=== PATIENT | male | born 1980 ===

== ENCOUNTER 2020-08-06 10:47 | Emergency (ER) | payer OTHER, SELFPAY ==
[2020-08-06 11:00] VITALS: BP 121/69; PULSE 60; RESP 16; TEMP 36.9; O2SAT 100
--- NOTE | 2020-08-06 11:10 | PC.NURSE ---
VISUAL ACUITY OF BOTH EYE TOGETHER IS 20/20 -1
--- NOTE | 2020-08-06 11:30 | ED.GENADULT ---
HPI - General Adult General Chief complaint: Eye Problems Stated complaint: right eye fb Time Seen by Provider: 08/06/20 11:30 Source: patient and RN notes reviewed Mode of arrival: ambulatory Limitations: no limitations History of Present Illness HPI narrative: 39-year-old male presents with complains of redness and sensation of foreign body in right eye for the past 24 hours. Jayy reports putting on hard hat approximately 11:00am on 08/05/2020 and believes dust or particles went into RT eye. Flushed RT eye numerous times without relief. Mild redness, with clear tearing. Exacerbating factors consists of closing eyes, rubbing eye, and light exposure. Relieving factors is closing eyes. Denies blurred vision, double vision, or pain of eye with movement. Does not wear glasses or contact lenses. Remains active. The patient reports he have not been diagnosed with COVID-19. The patient reports he is not waiting for the results of a COVID-19 lab test. The patient reports he do not have chills, weakness, or fatigue. The patient reports he do not have a new or worsening cough or shortness of breath. Denies chest pain. The patient reports he do not have any rhinorrhea, congestion, loss of taste or smell, sore throat, nausea, vomiting, abdominal pain, and diarrhea. Tolerating po intake well. Denies recent traveling. Denies concerns for COVID-19 or exposures been home with limited outdoor exposure except for essential household needs, work, and return home. At this time, patient is not suspected of having COVID-19. Some parts of this dictation were generated by voice recognition software and may contain typographical and/or grammatical inaccuracies. Related Data Allergies Allergy/AdvReac Type Severity Reaction Status Date / Time No Known Allergies Allergy Verified 08/06/20 11:21 Review of Systems Review of Systems: Narrative: CONSTITUTIONAL: Denies fever, chills, sweats. EYES: Denies visual changes. Complains of RT eye redness, clear tearing, and foreign body sensation. ENT: Denies rhinorrhea, congestion, sore throat, otalgia. CARDIOVASCULAR: Denies chest pain, palpitations, edema. RESPIRATORY: Denies dyspnea, wheezing, cough. GASTROINTESTINAL: Denies abdominal pain, nausea, vomiting, diarrhea. GENITOURINARY: Denies dysuria, hematuria, abnormal discharge. SKIN: Denies rash or itching. MUSCULOSKELETAL: Denies acute back pain, joint pain, or myalgia. NEUROLOGIC: Denies numbness or focal weakness. PSYCHIATRIC: Denies anxiety or depression. All systems reviewed & are unremarkable except as noted in HPI and below. FOR[facility]LY [facility] Past Medical History Medical History Allergies Ex-smoker for less than 1 year Surgical History Surgical History (Updated 08/06/20 @ 11:49 by MARTA Silverio) No significant past surgical history Family History Family History (Updated 08/12/20 @ 23:42 by MARTA Silverio) Father Alive and well Mother Alive and well Sibling Asthma Social History Social History (Updated 08/06/20 @ 11:49 by MARTA Silverio) Smoking status: Former smoker Tobacco type: e-cigarettes/vaping Second hand tobacco smoke exposure: No Alcohol intake: current Substance use: never Substance use type: does not use Living arrangements: with family Occupation/Education: occupation Gender identity (if verbalized by the patient): Male Comments At time of signature, I have reviewed and agree with nursing past medical, surgical, social, and family history. Please see nursing chart for further information. There is no relevant patient and family history pertinent to the presenting complaint. Exam Narrative: Exam Narrative: GENERAL: This is a well-nourished, well-developed patient, in no apparent distress. HEAD: normocephalic, atraumatic. EYES: PERRL. Sclera clear/white to LT eye only. RT eye sclera kimberly with clear watery drainage, no swelling, no tenderness on palpation or robby
== END 2020-08-06 11:57 | disposition home or self-care (01) ==
PROVIDERS: Emergency Provider Nurse Practitioner Family
DX: T15.91XA Foreign body on external eye, part unspecified, right eye, initial encounter (principal); X58.XXXA Exposure to other specified factors, initial encounter; Z87.891 Personal history of nicotine dependence
CPT/HCPCS: 99213; A9270; G0463